=== PATIENT | female | born 1955 | race African-American/Black ===

== ENCOUNTER → 2021-02-06 | Outpatient (CLI) | payer OTHER ==
[~2021-02-06] MED LIST: ADVAIR 250-501 EACH IH; ARTIFICIAL TEAR15 M3; CALTRATE PLUS1 EACH PO; CARAFATE1 GM/10 ML PO; CIPRO500 MG; CLEOCIN HCL300 MG PO; CLOPIDOGREL75 MG PO; COLACE100 MG PO; COQ-10100 MG; DITROPAN XL10 M1 PO; FLONASE 0.05%50 MCG NASAL; FLONASE16 GM; KONSYL0.52 GM; LIDOCAINE 3%-HC7 GM TOP; LIDODERM TP; LIPITOR40 MG PO; LORATIDINE 10 M10 M1 PO; LORTAB 5 MG/5001 TA1 PO; MELOXICAM7.5 MG PO; METFORMIN HCL500 M3 PO; MIRALAX17 G1; MIRALAX255 GM PO; MIRAPEX0.5 MG PO; NICOTINE TRANSD21 M1; NUVIGIL PO; OXYCODONE HCL E10 MG PO; PERCOCET 5-3251 EACH PO; PERIDEX 0.12%473 M1 SSP; PRILOSEC40 MG PO; PROAIR HFA8.5 GM; PROVENTIL; ROBAXIN 750 MG750 MG PO; VALIUM5 MG PO; VITAMIN D400 UNI1 PO
== END ==
LOC: SJCVCIMAG 12:49
PROVIDERS: ATTEND Nuclear Medicine Nuclear Cardiology
DX: I70.203 Unspecified atherosclerosis of native arteries of extremities, bilateral legs (principal); M79.604 Pain in right leg; M79.605 Pain in left leg; E78.5 Hyperlipidemia, unspecified; J44.9 Chronic obstructive pulmonary disease, unspecified; R73.03 Prediabetes; G47.33 Obstructive sleep apnea (adult) (pediatric); F17.200 Nicotine dependence, unspecified, uncomplicated; Z79.82 Long term (current) use of aspirin; Z79.899 Other long term (current) drug therapy; Z88.0 Allergy status to penicillin; Z88.1 Allergy status to other antibiotic agents; Z88.8 Allergy status to other drugs, medicaments and biological substances

== ENCOUNTER → 2021-02-12 | Outpatient (CLI) | payer OTHER | LOC: SJCVC 13:09 | PROVIDERS: ATTEND Nuclear Medicine Nuclear Cardiology | DX: I73.9 Peripheral vascular disease, unspecified (principal); M79.604 Pain in right leg; M79.605 Pain in left leg; E78.00 Pure hypercholesterolemia, unspecified; R73.03 Prediabetes; F17.200 Nicotine dependence, unspecified, uncomplicated; Z79.84 Long term (current) use of oral hypoglycemic drugs; Z79.891 Long term (current) use of opiate analgesic; Z79.899 Other long term (current) drug therapy; Z88.0 Allergy status to penicillin; Z88.1 Allergy status to other antibiotic agents; Z88.8 Allergy status to other drugs, medicaments and biological substances ==

== ENCOUNTER 2021-02-14 06:59 | Observation (INO) | payer OTHER ==
[~2021-02-14] VITALS: Ht 170.2 cm; Wt 98.0 kg
[~2021-02-14 06:59] MED LIST changes: -CARAFATE1 GM/10 ML PO; -CLOPIDOGREL75 MG PO; -DITROPAN XL10 M1 PO; -LORATIDINE 10 M10 M1 PO; -MELOXICAM7.5 MG PO; -METFORMIN HCL500 M3 PO; -OXYCODONE HCL E10 MG PO; -ROBAXIN 750 MG750 MG PO
[2021-02-14 07:46] LABS: HEMATOCRIT 38.9 % (37.0-47.0); MCH 28.2 pg (26.0-34.0); MCHC 33.5 g/dL (28.0-37.0); MCV 84.2 fL (80.0-100.0); RBC 4.62 mil/uL (4.20-5.00); RDW 15.8 % (10.5-14.5); WBC 7.9 thou/uL (4.0-11.0)
[2021-02-14 07:51] VITALS: BP 135/80
[2021-02-14 07:56] LABS: CALCIUM 9.6 mg/dL (8.5-10.1); CREATININE 1.2 mg/dL (0.6-1.0)
[2021-02-14 08:01] LABS: POTASSIUM 4.7 mmol/L (3.5-5.1)
[2021-02-14] MEDS ORDERED: LORATIDINE 10 M10 M1 PO (08:08)
[2021-02-14] MEDS ORDERED: MELOXICAM7.5 MG PO (08:09)
[2021-02-14] MEDS ORDERED: METFORMIN HCL500 M3 PO (08:10)
[2021-02-14] MEDS ORDERED: ROBAXIN 750 MG750 MG PO (08:10)
[2021-02-14] MEDS ORDERED: DITROPAN XL10 M1 PO (08:11)
[2021-02-14] MEDS ORDERED: OXYCODONE HCL E10 MG PO (08:12)
[2021-02-14] MEDS ORDERED: CARAFATE1 GM/10 ML PO (08:13)
--- NOTE | 2021-02-14 11:14 | NUR ---
PT BROUGHT BACK TO CV HOLDING RM 4 WITH SHEATH LEFT IN RT GROIN. N PARTNOY TO PULL AND HOLD MANUAL PRESSURE. WILL DOCUMENT HEMOSTASIS WHEN DONE.
--- NOTE | 2021-02-14 12:26 | NUR ---
PT PRESENTS FROM PALLIATIVE CARE PHYSICIAN POST ARTERIOGRAM WITH INTERVENTION. ASSESSMENT PERFORMED. ADMISSION COMPLETED. VSS. WILL CONTINUE TO MONITOR. PT NEEDS FREQUENT REDIRECTION ON KEEPING LEG STRAIGHT. PT STATES SHE HAS RESTLESS LEG SYNDROME AND THIS IS GOING TO BE VERY DIFFICULT FOR HER.
--- NOTE | 2021-02-14 14:09 | CATHLAB ---
[facility] [place] [address] INVASIVE PROCEDURE REPORT Name: RAI SÁNCHEZ Room #: 212-P [facility] Patria MKrystal#: [id number] Admission: 02/14/21 Attend Phys: Shimon Scott MD Discharge: Date of : 55 Report #: [id number] THIS REPORT FOR: cc: FAM - Clinic physician unknown FAM - Family physician unknown Xu Huston MD [facility] ~ APPROVED REPORT Study performed: 02/14/2021 09:54:55 Patient Details Patient Status: Out-Patient Room #: The patient is a 65 year-old female Event Personnel Xu Huston Senior Front End Engineer, Arti Renae RN RN, Cece Prado RTR, JOSELO Scrub, Helen Mathis Monitor Procedures Performed Art Access - R femoral artery* Left Heart Cath w/or w/o Coronaries [id number] [facility] Hemostasis with Manual pressure 70105 Initial Mod Sed Same Phys/QHP Gr5y 434707 Indication Chest pain Procedure Narrative A SHEATH BRITE-TIP 6F X 11CM ([id number]) sheath was inserted into the RFA 6F^. Coronary angiography was performed using coronary diagnostic catheters. The right coronary system was accessed and visualized with a JR4 catheter. The left coronary system was accessed and visualized with a JL4 catheter. The left ventricle was accessed and visualized with a STR PIG catheter. Left ventriculogram was performed in 30 degree projection. Hemostasis was obtained with manual pressure following sheath removal without any complications. SHEATH TO BE PULLED IN CV HOLDING BY TECHNOLAGIST. Intraoperative Conscious Sedation Sedation start time: 1046 Case end Time: 1055 Fentanyl 100.0 mcg Versed 2.0 mg Fluoro Time: 8.90 minutes Dose: DAP 69472.33 cGycm2 211 mGy [facility] [address] [place] [address] INVASIVE PROCEDURE REPORT Name: RAI SÁNCHEZ Luis Fernando Room #: 212-P [facility]#: [id number] Admission: 02/14/21 Attend Phys: Shimon Scott, Discharge: Date of : 55 Report #: [id number] Contrast Type and Amount: Visipaque 2,022 ml Hemodynamics The aortic pressure is 117/61 mmHg with a mean of 84 mmHg. The left ventricular pressure is 161/7 mmHg with a mean of mmHg. The left ventricular end diastolic pressure is 16 mmHg. PCI Technique Lesion Percutaneous coronary intervention was performed on the Common iliac. Conclusion #1. Normal left ventricular size and systolic function. EF 60%. #2 left main mild disease giving rise to LAD and circumflex. #3 the LAD is relatively small in caliber and attenuated distally but no high-grade occlusive disease. #4 codominant circumflex also mild distal disease but no occlusive disease. #5 smaller codominant right coronary artery distal disease no indication for coronary intervention. Recommendations and plan: Continue aggressive risk factor modification. No indication for coronary intervention. <ELECTRONICALLY SIGNED> By: Xu Huston MD, FACC 02/14/21 1409 140 140 Xu Huston MD, FAC /INF
--- NOTE | 2021-02-14 15:52 | NUR ---
PT REMAINS ON BEDREST UNTIL 5:17PM. PT IS PLAYING ON PHONE AT THE MOMENT. ASSESSMENT PERFORMED AND CHARTED. PT IS CURRENLTY IN [place]SE [place] TO EAT. VSS. WILL CONTINUE TO MONITOR.
[2021-02-14 19:00] VITALS: BP 129/76
[2021-02-15 04:00] VITALS: BP 119/67
[2021-02-15 05:09] LABS: CALCIUM 8.8 mg/dL (8.5-10.1); CREATININE 1.2 mg/dL (0.6-1.0); HEMATOCRIT 34.7 % (37.0-47.0); HEMOGLOBIN 11.1 gm/dL (12.0-15.0); MCH 27.7 pg (26.0-34.0); MCHC 32.1 g/dL (28.0-37.0); MCV 86.4 fL (80.0-100.0); POTASSIUM 4.6 mmol/L (3.5-5.1); RBC 4.02 mil/uL (4.20-5.00); RDW 15.9 % (10.5-14.5); WBC 6.3 thou/uL (4.0-11.0)
--- NOTE | 2021-02-15 07:25 | NUR ---
PATIENT OFF BEDREST.ASSIST X 1 TO THE BATHROOM.VOIDED.NEW IV ACCESS WAS PLACED ON HER LEFT FOREARM.RIGHT GROIN C/D/I.NO HEMATOMA NOTED.COMPLAIN OF RIGHT LEG PAIN.OXY GIVEN.POC CONTINUED.
[2021-02-15] MEDS ORDERED: CLOPIDOGREL75 MG PO (07:47)
--- NOTE | 2021-02-15 08:44 | NUR ---
ASSUMED CARE FOR PATIENT AT 0700. PT SITTING UP IN BED. ASSESSMENT PERFORMED AND CHARTED. PT NOTIFIED OF PENDING D/C. WILL CONTINUE TO MONITOR.
[2021-02-15 12:00] VITALS: BP 102/62
--- NOTE | 2021-02-15 12:37 | NUR ---
PT DISCHARGING TO HOME SHE IS IN NEED OF TRANSPORTATION HOME. NOTIFIED MODE OF CARE ([employer]) FOR TRANSPORT HOME TRIP #[id number] THEY WILL [place] SAMPLER BETWEEN [phone].
[2021-02-15 13:52] VITALS: BP 119/67
== END 2021-02-15 14:45 | disposition home or self-care (01) ==
LOC: CATH 06:59 → 2N 12:02
PROVIDERS: Nurse Practitioner; ADMIT Internal Medicine Cardiovascular Disease; ATTEND Nuclear Medicine Nuclear Cardiology
DX: I70.203 Unspecified atherosclerosis of native arteries of extremities, bilateral legs (principal); R07.89 Other chest pain; E78.00 Pure hypercholesterolemia, unspecified; R73.03 Prediabetes; F17.200 Nicotine dependence, unspecified, uncomplicated; Z79.899 Other long term (current) drug therapy

== ENCOUNTER 2021-02-21 08:27 | Observation (INO) | payer OTHER ==
[2021-02-21] VITALS (11 sets, daily range): BP systolic 91–132; BP diastolic 48–84
[~2021-02-21] VITALS: Ht 170.2 cm; Wt 100.5 kg
[~2021-02-21 08:27] MED LIST changes: +CARAFATE1 GM/10 ML PO; +CLOPIDOGREL75 MG PO; +DITROPAN XL10 M1 PO; +LORATIDINE 10 M10 M1 PO; +MELOXICAM7.5 MG PO; +METFORMIN HCL500 M3 PO; +OXYCODONE HCL E10 MG PO; +ROBAXIN 750 MG750 MG PO
--- NOTE | 2021-02-21 18:54 | NUR ---
PT CARE ASSUMED AT 1300. ASSESSMENTS CHARTED. MEDICATIONS CHARTED. LFA IV. SINUS RHYTHM. CPAP AT NOC/HOME. LT GROIN; NO INTERVENTIONS, HELD MANUALLY 6 HR BEDREST OVER AT 1730. HEMOSTASIS AT 1130. PAIN MEDS.
--- NOTE | 2021-02-22 04:19 | NUR ---
PT COMPLAINED OF LEG CRAMPS ON BILATERAL LEGS. MOANS AND WALKING AROUND. DR. CHILEL NOTIFED AND ORDER FOR VALIUM GIVEN AND PROVIDED TO PT FOR RELIEF. REPORTS SHE WILL NEED SCRIPT TO GO HOME ON. LEFT GROIN CLEAN DRY AND INTACT NO BLEEDING NOTED. PULSES 1 PLUS. PT SLEPT LITTLE LAST NIGHT WITH HOSPITALIZATION STAY. CALL LIGHT WITHIN REACH IF NEEDS ASSISTANCE FROM STAFF.
[2021-02-22 04:51] VITALS: BP 105/56
[2021-02-22 07:55] VITALS: BP 101/56
[2021-02-22 07:59] VITALS: BP 101/56
[2021-02-22 09:47] VITALS: BP 101/56
[2021-02-22 09:50] VITALS: BP 101/56
--- NOTE | 2021-02-22 10:01 | NUR ---
PT CARE ASSUMED AT 0700. ASSESSMENTS CHARTED. MEDICATIONS CHARTED. LFA IV. SINUS RHYTHM. CPAP AT [facility] (HOME). DAY TWO; LT GROIN, NO INTERVENTION; RLE ANGIOGRAM. PT DISCHARGED TO HOME. DISCHARGE PAPERWORK SIGNED. TELEMETRY D/C'D. IV D/C'D.
--- NOTE | 2021-02-22 15:35 | NUR ---
Call rec'd from RN that pt was dcing home today but needed a cab ride. Visited with pt at bedside and cab voucher provided for ride to her home in [place], @ [id number] [facility]. Cm vouched ride to facilitate an early dc. The pt was indep with gait and adl's. No other dc planning needs were indicated.
== END 2021-02-22 12:25 | disposition home or self-care (01) ==
LOC: CATH 08:27 → 2N 09:09 → CATH 09:49 → 2N 02-22 12:25
PROVIDERS: ADMIT Nuclear Medicine Nuclear Cardiology; ATTEND Nuclear Medicine Nuclear Cardiology
DX: I73.9 Peripheral vascular disease, unspecified (principal); J44.9 Chronic obstructive pulmonary disease, unspecified; E78.00 Pure hypercholesterolemia, unspecified; R73.03 Prediabetes; Z72.0 Tobacco use

== ENCOUNTER → 2021-03-18 | Outpatient (CLI) | payer OTHER | LOC: SJCVCIMAG 03-14 06:49 | PROVIDERS: ATTEND Nuclear Medicine Nuclear Cardiology | DX: I70.201 Unspecified atherosclerosis of native arteries of extremities, right leg (principal); R19.09 Other intra-abdominal and pelvic swelling, mass and lump ==